=== PATIENT | female | born 1985 ===

== ENCOUNTER 2020-03-08 07:41 | Inpatient (IN) | payer BC ==
[2020-03-08] MEDS ORDERED: Sodium Chloride 0.9% 10 ML SDV IV PRN (17:22)
[2020-03-08] MEDS ORDERED: Methylergonovine 0.2 MG/1 ML Amp IM PRN (17:22)
[2020-03-08] MEDS ORDERED: Lidocaine 1% 50 ML MDV INJECT PRN (17:22)
[2020-03-08] MEDS ORDERED: Misoprostol 200 MCG Tab PO PRN (17:22)
[2020-03-08] MEDS ORDERED: Ondansetron 4 MG/2 ML SDV IVPUSH PRN (17:22)
[2020-03-08] MEDS ORDERED: Sodium Chloride 0.9% 2.5 ML Syringe FLUSH PRN (17:22)
[2020-03-08] MEDS ORDERED: Nalbuphine 10 MG/1 ML Vial IVPUSH PRN (17:22)
[2020-03-08] MEDS ORDERED: Tranexamic Acid 1,000 MG in Sodium Chloride 0.9% 100 ML IV PRN (17:22)
[2020-03-08] MEDS ORDERED: Water For Irrigation,Sterile 1,000 ML Container IRR PRN (17:22)
[2020-03-08] MEDS ORDERED: Terbutaline 1 MG/ML SDV SUBCUT PRN (17:22)
[2020-03-08] MEDS ORDERED: Carboprost Tromethamine 250 MCG/1 ML Amp IM PRN (17:22)
[2020-03-08] MEDS ORDERED: Butorphanol 1 MG/ML SDV IVPUSH PRN (17:22)
[2020-03-08] MEDS ORDERED: Sodium Chloride 0.9% 10 ML Syringe FLUSH PRN (17:22)
[2020-03-08] MEDS ORDERED: Oxytocin/0.9 % Sodium Chloride 30 UNIT/500 ML BAG IV SCH ×2 (17:30)
[2020-03-08] MEDS ORDERED: Misoprostol 25 MCG (1/4 of 100 MCG) Tab VAG PRN ×2 (18:00→22:00)
[2020-03-08] MEDS: Lactated Ringers 1,000 ML IV SCH ×2 (18:20→22:52)
[2020-03-08] MEDS ORDERED: VANCOMYCIN IV SCH (22:00)
[2020-03-08] MEDS ORDERED: SODIUM CHLORIDE 0.9% IV SCH (22:00)
[2020-03-08 22:32] LABS: CARBON DIOXIDE,CO2 20.1 mmol/L (21.0-32.0); POTASSIUM,K 3.6 mmol/L (3.5-5.1)
[2020-03-09] MEDS ORDERED: Vancomycin 1 GM SDV ONE (03:03)
[2020-03-09] MEDS ORDERED: Ropivacaine HCl/PF 100 ML ONE (06:01)
[2020-03-09] MEDS ORDERED: fentaNYL 100 MCG/2 ML SDV ONE (06:01)
--- NOTE | 2020-03-09 06:18 | PCM.PREANE ---
Preanesthetic Assessment - Anesthesia/Transfusion/Family Hx Anesthesia History: Prior Anesthesia Without Reaction Family History of Anesthesia Reaction: No Transfusion History: No Prior Transfusion(s) Type of Transfusion Reactions: Reports: Unknown - Physical Assessment NPO Status Date: 03/09/20 NPO Status Time: 02:00 Height: 1.7 m Weight: 128.82 kg ASA Class: 2 - Lab Values: Laboratory Last Values WBC 13.44 K/uL (4.0-11.0) H 03/08/20 17:52 RBC 3.68 M/uL (4.30-5.90) L 03/08/20 17:52 Hgb 10.8 g/dL (12.0-16.0) L 03/08/20 17:52 Hct 33.5 % (36.0-46.0) L 03/08/20 17:52 MCV 91.0 fL (80.0-98.0) 03/08/20 17:52 MCH 29.3 pg (27.0-32.0) 03/08/20 17:52 MCHC 32.2 g/dL (31.0-37.0) 03/08/20 17:52 RDW Std Deviation 44.7 fl (28.0-62.0) 03/08/20 17:52 RDW Coeff of Alida 14 % (11.0-15.0) 03/08/20 17:52 Plt Count 353 K/uL (150-400) 03/08/20 17:52 MPV 10.60 fL (7.40-12.00) 03/08/20 17:52 Nucleated RBC % 0.6 /100WBC 03/08/20 17:52 Nucleated RBCs # 0 K/uL 03/08/20 17:52 Sodium 142 mmol/L (136-145) 03/08/20 17:52 Potassium 3.6 mmol/L (3.5-5.1) 03/08/20 17:52 Chloride 107 mmol/L (98-107) 03/08/20 17:52 Carbon Dioxide 20.1 mmol/L (21.0-32.0) L 03/08/20 17:52 BUN 15 mg/dL (7.0-18.0) 03/08/20 17:52 Creatinine 1.1 mg/dL (0.6-1.0) H 03/08/20 17:52 Est Cr Clr Drug Dosing 69.42 mL/min 03/08/20 17:52 Estimated GFR (MDRD) 56.5 ml/min 03/08/20 17:52 Glucose 109 mg/dL (74-106) H 03/08/20 17:52 Uric Acid 5.7 mg/dL (2.6-7.2) 03/08/20 17:52 Calcium 9.0 mg/dL (8.5-10.1) 03/08/20 17:52 Total Bilirubin 0.2 mg/dL (0.2-1.0) 03/08/20 17:52 AST 19 IU/L (15-37) 03/08/20 17:52 ALT 19 IU/L (14-63) 03/08/20 17:52 Alkaline Phosphatase 121 U/L (46-116) H 03/08/20 17:52 Total Protein 6.0 g/dL (6.4-8.2) L 03/08/20 17:52 Albumin 2.3 g/dL (3.4-5.0) L 03/08/20 17:52 Globulin 3.7 g/dL (2.6-4.0) 03/08/20 17:52 Albumin/Globulin Ratio 0.6 (0.9-1.6) L 03/08/20 17:52 Blood Type AB NEGATIVE 03/08/20 17:52 Antibody Screen NEGATIVE 03/08/20 17:52 - Allergies Allergies/Adverse Reactions: Allergies Allergy/AdvReac Type Severity Reaction Status Date / Time Penicillins Allergy Severe Airway Verified 03/08/20 17:19 Tightness - Acknowledgements Anesthesia Type Planned: Epidural Pt an Appropriate Candidate for the Planned Anesthesia: Yes Alternatives and Risks of Anesthesia Discussed w Pt/Guardian: Yes Pt/Guardian Understands and Agrees with Anesthesia Plan: Yes PreAnesthesia Questionnaire HEENT History: Reports: None Cardiovascular History: Reports: None Respiratory History: Reports: None Gastrointestinal History: Reports: None Genitourinary History: Reports: None [employer] PLANNER History: Reports: Musculoskeletal History: Reports: None Neurological History: Reports: None Psychiatric History: Reports: None Endocrine/Metabolic History: Reports: None Hematologic History: Reports: None Immunologic History: Reports: None Oncologic (Cancer) History: Reports: None Dermatologic History: Reports: None - Infectious Disease History Infectious Disease History: Reports: Chicken Pox - Past Surgical History Head Surgeries/Procedures: Reports: None HEENT Surgical History: Reports: Oral Surgery, Other (See Below) Other HEENT Surgeries/Procedures: Avenel tooth extraction Cardiovascular Surgical History: Reports: None Respiratory Surgical History: Reports: None GI Surgical History: Reports: None Female Surgical History: Reports: None Endocrine Surgical History: Reports: None Neurological Surgical History: Reports: None Musculoskeletal Surgical History: Reports: None Oncologic Surgical History: Reports: None Dermatological Surgical History: Reports: None - SUBSTANCE USE Tobacco Use Status *Q: Never Tobacco User Recreational Drug Use History: No - HOME MEDS Home Medications: Home Meds Vits #93/Iron Fum/FA [ Formula Tablet] 1 each PO DAILY 03/08/20 [History] - CURRENT (IN HOUSE) MEDS Current Meds: Current Medications Butorphanol Tartrate (Stadol) 1 mg IVPUSH Q1H PRN PRN Reason: Pain Carboprost Tromethamine (Hemabate Ds) 250 mcg IM ASDIRECTED PRN PRN Reason: Post Hemorrhage Oxytocin/Sodium Chloride (Oxytocin 30 Unit/500 Ml-Ns) 30 unit in 500 mls @ 999 mls/hr IV TITRATE DIPIKA Tranexamic Acid 1,000 mg/ (Sodium Chloride) 110 mls @ 660 mls/hr IV ONETIME PRN PRN Reason: Bleeding Oxytocin/Sodium Chloride (Oxytocin 30 Unit/500 Ml-Ns) 30 unit in 500 mls @ 2 mls/hr IV TITRATE DIPIKA; Protocol Last Titration: 03/09/20 02:29 Dose: 8 munits/min, 8 mls/hr Documented by: Lactated Ringer's (Ringers, Lactated) 1,000 mls @ 150 mls/hr IV ASDIRECTED DIPIKA Last Admin: 03/08/20 22:52 Dose: 150 mls/hr Documented by: Vancomycin HCl 2 gm/ Sodium (Chloride) 250 mls @ 166 mls/hr IV Q8HR [facility] Last Admin: 03/09/20 00:03 Dose: Not Given Documented by: Lidocaine HCl (Xylocaine 1%) 50 ml INJECT ONETIME PRN PRN Reason: Laceration repair Methylergonovine Maleate (Methergine) 0.2 mg IM ASDIRECTED PRN PRN Reason: Post Hemorrhage Misoprostol (Cytotec) 200 mcg PO ONETIME PRN PRN Reason: Post Hemorrhage Misoprostol (Cytotec) 25 mcg VAG ONETIME PRN PRN Reason: Cervical Ripening Last Admin: 03/08/20 18:27 Dose: 25 mcg Documented by: Misoprostol (Cytotec) 25 mcg VAG Q4H PRN PRN Reason: Cervical Ripening Nalbuphine HCl (Nubain) 10 mg IVPUSH Q1H PRN PRN Reason: Pain (severe 7-10) Ondansetron HCl (Zofran) 4 mg IVPUSH Q6H PRN PRN Reason: Nausea/Vomiting Sodium Chloride (Saline Flush) 10 ml FLUSH ASDIRECTED PRN PRN Reason: Keep Vein Open Sodium Chloride (Saline Flush) 2.5 ml FLUSH ASDIRECTED PRN PRN Reason: Keep Vein Open Sodium Chloride (Normal Saline) 10 ml IV ASDIRECTED PRN PRN Reason: IV Use Sterile Water (Sterile Water For Irrigation) 1,000 ml IRR ASDIRECTED PRN PRN Reason: delivery Terbutaline Sulfate (Brethine) 0.25 mg SUBCUT ASDIRECTED PRN PRN Reason: Tacysystole Discontinued Medications Fentanyl (Sublimaze) Confirm Administered Dose 100 mcg .ROUTE .STSkyGrid-MED ONE Stop: 03/09/20 06:02 Vancomycin HCl 2.4494 gm/ (Sodium Chloride) 250 mls @ 166 mls/hr IV Q8HR DIPIKA Ropivacaine (Naropin 0.2%) Confirm Administered Dose 100 mls @ as directed .ROUTE .STK-MED ONE Stop: 03/09/20 06:02 Vancomycin HCl (Vancomycin) Confirm Administered Dose 1 gm .ROUTE .STK-MED ONE Stop: 03/09/20 03:04 Last Admin: 03/09/20 03:46 Dose: 2 gm Documented by:
--- NOTE | 2020-03-09 06:21 | PCM.PRNOTE ---
- Free Text/Narrative Note: Anes Note Patient requests epidural for L&D. Sitting position. Level L3-L4 midlien approach. Sterile technique. Chloraprep scrub to lumbar area. Sterile fenestrated drape applied. Epidural space easily achieved single attempt with ease using JOVANNI technique. JOVANNI at 3 cm. Cath threaded 5 cm with ease. Sterile clear adheisve dressing applied. Test 0610 3 cc 1.5% lido with epi negative. 0614 Load 10 cc 0.2% ropiviciane with 1 mcg cc fentnayl in slow divided doses. 0619 Pump started wih 90 cc same solution. Rate is 8 cc hr with 6 cc q 20 min prn bolus. Shalini well. Time with patient [id number] Christopher Glover [employer]
[2020-03-09] MEDS: Lactated Ringers 1,000 ML IV SCH (07:04)
[2020-03-09] MEDS ORDERED: Lidocaine 1% 50 ML MDV ONE (08:06)
[2020-03-09] MEDS ORDERED: Benzocaine/Menthol 20%-0.5% Spray 78 GM Cannister TOP PRN (08:39)
[2020-03-09] MEDS ORDERED: Lanolin 100% Cream 7 GM Tube TOP PRN (08:39)
[2020-03-09] MEDS ORDERED: Witch Hazel Medicated Pads 40/Jar TOP PRN (08:39)
[2020-03-09] MEDS ORDERED: Bisacodyl 10 MG Supp RECTAL PRN (08:39)
[2020-03-09] MEDS ORDERED: Measles, Mumps & Rubella Vaccine 0.5 ML SDV SUBCUT ONE (08:39)
[2020-03-09] MEDS ORDERED: oxyCODONE 5 MG Tab PO PRN (08:39)
[2020-03-09] MEDS ORDERED: Docusate Sodium 100 MG Cap PO PRN (08:39)
[2020-03-09] MEDS ORDERED: Acetaminophen 500 MG Tab PO PRN ×2 (08:39)
[2020-03-09] MEDS ORDERED: Ibuprofen 400 MG Tab PO PRN (08:39)
[2020-03-09] MEDS: Ibuprofen 800 MG Tab PO PRN ×2 (09:58→21:08)
[2020-03-09] MEDS: NIFEdipine 30 MG Tab.ER PO SCH (15:20)
--- NOTE | 2020-03-09 21:07 | PCM.SN.2 ---
- Free Text/Narrative Note: Patient is feeling well overall. Denies headache or visual changes. Blood pressures have been in 140-150s/80-90s. Procardia 30 mg XL daily initiated orally. Will continue cares and monitor blood pressures closely.
[2020-03-10 05:36] LABS: BLOOD UREA NITROGEN,BUN 10 mg/dL (7.0-18.0); CARBON DIOXIDE,CO2 23.4 mmol/L (21.0-32.0); CHLORIDE,CL 108 mmol/L (98-107); GLUCOSE RANDOM 84 mg/dL (74-106); POTASSIUM,K 3.9 mmol/L (3.5-5.1); SODIUM,NA 142 mmol/L (136-145)
--- NOTE | 2020-03-10 07:23 | PCM48HPAN ---
Post Anesthesia Note - EVALUATION WITHIN 48HRS OF ANESTHETIC Vital Signs in Normal Range: Yes Patient Participated in Evaluation: Yes Respiratory Function Stable: Yes Airway Patent: Yes Cardiovascular Function Stable: Yes Hydration Status Stable: Yes Pain Control Satisfactory: Yes Nausea and Vomiting Control Satisfactory: Yes Mental Status Recovered: Yes Vital Signs: Last Vital Signs Temp 36.5 C 03/10/20 04:14 Pulse 66 03/10/20 04:14 Resp 16 03/10/20 04:14 BP 135/81 03/10/20 04:14 Pulse Ox 97 03/10/20 04:14 - COMMENTS/OBSERVATIONS Free Text/Narrative:: Doing well.
--- NOTE | 2020-03-10 07:35 | OR ---
SURGEON: Javier Brown MD DATE OF PROCEDURE: 03/09/2020 INDICATION FOR PROCEDURE: This is a 34-year-old G2, P 1-0-0-1 at 37 weeks and 1 day, admitted for induction of labor due to preeclampsia without severe features. The patient was noted to have elevated blood pressures earlier this week that was 150s over 90s. She denied any symptoms of severe preeclampsia. She completed a course of betamethasone, and scheduled for induction of labor at 37 weeks. She is GBS positive with penicillin allergy of anaphylaxis. Sensitivities showed resistance to clindamycin. Therefore she was given vancomycin for GBS prophylaxis. She is AMA, had otherwise uncomplicated . Her BP was mild range on admission, did not have symptoms. Her preeclampsia labs were noted to have elevated creatinine of 1.1, otherwise was within normal limits. She previously had elevated protein to creatinine ratio of 0.3. She was given 2 doses of Cytotec and began shama every 1 to 2 minutes, but did not make cervical change from 1 cm. She was given Pitocin and began making cervical change. She became 4 cm dilated, then had spontaneous rupture of membranes with clear fluid. She desired an epidural which she received with good pain control. The baby had mostly category 1 tracing. She did have intermittent variable decels that responded to repositioning. She then progressed quickly to fully dilated and +1 station with the urge to push. PREOPERATIVE DIAGNOSES: 1. Espinoza intrauterine at 37 weeks and 0 days. 2. Preeclampsia without severe features. 3. Advanced maternal age. POSTOPERATIVE DIAGNOSES: 1. Espinoza intrauterine at 37 weeks and 0 days. 2. Preeclampsia without severe features. 3. Advanced maternal age. PROCEDURE PERFORMED: Normal spontaneous vaginal delivery, repair of second-degree perineal laceration and right labial laceration. ANESTHESIA: Epidural. FINDINGS: Viable male infant, scores of 8 and 9, weight of 3400 g. DESCRIPTION OF PROCEDURE: The patient pushed with contractions for approximately 45 minutes with good descent to +4 station. The head delivered in occiput anterior position, restituted to ROT. Anterior shoulder delivered easily, followed by posterior shoulder and remaining body. No nuchal cord was noted. The baby was placed on maternal chest and evaluated by awaiting nursery staff. The baby was pink, crying vigorously, and moving all extremities immediately after delivery. The umbilical cord gases were obtained. The placenta was removed with gentle traction on the umbilical cord and fundal massage. It was examined to be intact with 3-vessel cord. The perineum was examined, and she had a second-degree laceration, which extended along the inferior right labia. She did not have complete pain relief. Therefore, she was given 15 mL of 1% lidocaine with epi for local anesthesia. The second-degree laceration was repaired with 2-0 Vicryl in the usual fashion. The right labial laceration was then repaired with 3-0 Vicryl in a running fashion. Hemostasis was confirmed after the repair. Fundal massage was performed, the uterus was firm and below the umbilicus, and the bleeding was light. She tolerated the procedure well and was given care instructions. RAUL HARRIS /[id number] MTDD
--- NOTE | 2020-03-10 08:17 | PCM.PNPP ---
- General Info Date of Service: 03/10/20 Functional Status: Reports: Pain Controlled, Tolerating Diet, Ambulating, Urinating - Review of Systems General: Reports: Fatigue. Denies: Fever, Weakness Pulmonary: Denies: Shortness of Breath Cardiovascular: Denies: Chest Pain, Palpitations, Lightheadedness Gastrointestinal: Denies: Abdominal Pain, Nausea, Vomiting Genitourinary: Reports: No Symptoms Musculoskeletal: Reports: No Symptoms Skin: Reports: No Symptoms Neurological: Reports: No Symptoms. Denies: Headache Psychiatric: Reports: No Symptoms - General Info Date of Service: 03/10/20 - Patient Data Vital Signs - Most Recent: Last Vital Signs Temp 36.4 C 03/10/20 08:03 Pulse 69 03/10/20 08:03 Resp 18 03/10/20 08:03 BP 149/93 H 03/10/20 08:03 Pulse Ox 99 03/10/20 08:03 Weight - Most Recent: 128.82 kg Lab Results - Last 24 Hours: Laboratory Results - last 24 hr 03/09/20 03/10/20 03/10/20 Range/Units 09:27 04:55 04:55 WBC 14.17 H (4.0-11.0) K/uL RBC 3.24 L (4.30-5.90) M/uL Hgb 9.3 L (12.0-16.0) g/dL Hct 29.4 L (36.0-46.0) % MCV 90.7 (80.0-98.0) fL MCH 28.7 (27.0-32.0) pg MCHC 31.6 (31.0-37.0) g/dL RDW Std Deviation 44.4 (28.0-62.0) fl RDW Coeff of Alida 14 (11.0-15.0) % Plt Count 312 (150-400) K/uL MPV 10.20 (7.40-12.00) fL Neut % (Auto) 65.7 (48.0-80.0) % Lymph % (Auto) 26.3 (16.0-40.0) % Giles % (Auto) 7.2 (0.0-15.0) % Eos % (Auto) 0.6 (0.0-7.0) % Baso % (Auto) 0.2 (0.0-1.5) % Neut # (Auto) 9.3 H (1.4-5.7) K/uL Lymph # (Auto) 3.7 H (0.6-2.4) K/uL Giles # (Auto) 1.0 H (0.0-0.8) K/uL Eos # (Auto) 0.1 (0.0-0.7) K/uL Baso # (Auto) 0.0 (0.0-0.1) K/uL Nucleated RBC % 0.0 /100WBC Nucleated RBCs # 0 K/uL Sodium 142 (136-145) mmol/L Potassium 3.9 (3.5-5.1) mmol/L Chloride 108 H (98-107) mmol/L Carbon Dioxide 23.4 (21.0-32.0) mmol/L BUN 10 (7.0-18.0) mg/dL Creatinine 0.9 (0.6-1.0) mg/dL Est Cr Clr Drug Dosing 84.84 mL/min Estimated GFR (MDRD) > 60.0 ml/min Glucose 84 (74-106) mg/dL Uric Acid (2.6-7.2) mg/dL Calcium 8.7 (8.5-10.1) mg/dL Total Bilirubin 0.2 (0.2-1.0) mg/dL AST 19 (15-37) IU/L ALT 15 (14-63) IU/L Alkaline Phosphatase 103 (46-116) U/L Total Protein 5.5 L (6.4-8.2) g/dL Albumin 1.8 L (3.4-5.0) g/dL Globulin 3.7 (2.6-4.0) g/dL Albumin/Globulin Ratio 0.5 L (0.9-1.6) Screen NEGATIVE (NEGATIVE) RhIG Candidate? YES Rhogam Indicated YES, BABY RH POS H 03/10/20 Range/Units 04:55 WBC (4.0-11.0) K/uL RBC (4.30-5.90) M/uL Hgb (12.0-16.0) g/dL Hct (36.0-46.0) % MCV (80.0-98.0) fL MCH (27.0-32.0) pg MCHC (31.0-37.0) g/dL RDW Std Deviation (28.0-62.0) fl RDW Coeff of Alida (11.0-15.0) % Plt Count (150-400) K/uL MPV (7.40-12.00) fL Neut % (Auto) (48.0-80.0) % Lymph % (Auto) (16.0-40.0) % Giles % (Auto) (0.0-15.0) % Eos % (Auto) (0.0-7.0) % Baso % (Auto) (0.0-1.5) % Neut # (Auto) (1.4-5.7) K/uL Lymph # (Auto) (0.6-2.4) K/uL Giles # (Auto) (0.0-0.8) K/uL Eos # (Auto) (0.0-0.7) K/uL Baso # (Auto) (0.0-0.1) K/uL Nucleated RBC % /100WBC Nucleated RBCs # K/uL Sodium (136-145) mmol/L Potassium (3.5-5.1) mmol/L Chloride (98-107) mmol/L Carbon Dioxide (21.0-32.0) mmol/L BUN (7.0-18.0) mg/dL Creatinine (0.6-1.0) mg/dL Est Cr Clr Drug Dosing mL/min Estimated GFR (MDRD) ml/min Glucose (74-106) mg/dL Uric Acid 5.2 (2.6-7.2) mg/dL Calcium (8.5-10.1) mg/dL Total Bilirubin (0.2-1.0) mg/dL AST (15-37) IU/L ALT (14-63) IU/L Alkaline Phosphatase (46-116) U/L Total Protein (6.4-8.2) g/dL Albumin (3.4-5.0) g/dL Globulin (2.6-4.0) g/dL Albumin/Globulin Ratio (0.9-1.6) Screen (NEGATIVE) RhIG Candidate? Rhogam Indicated Med Orders - Current: Current Medications Acetaminophen (Tylenol Extra Strength) 500 mg PO Q4H PRN PRN Reason: Pain Acetaminophen (Tylenol Extra Strength) 1,000 mg PO Q4H PRN PRN Reason: Pain Benzocaine/Menthol (Dermoplast Pain Relief 20%-0.5% Faxon) 78 gm TOP ASDIRECTED PRN PRN Reason: Perineal Comfort Measure Last Admin: 03/09/20 09:59 Dose: 1 canister Documented by: Bisacodyl (Dulcolax) 10 mg RECTAL ONETIME PRN PRN Reason: Constipation Butorphanol Tartrate (Stadol) 1 mg IVPUSH Q1H PRN PRN Reason: Pain Carboprost Tromethamine (Hemabate Ds) 250 mcg IM ASDIRECTED PRN PRN Reason: Post Hemorrhage Docusate Sodium (Colace) 100 mg PO BID PRN PRN Reason: Constipation Last Admin: 03/09/20 09:58 Dose: 100 mg Documented by: Emollient Ointment (Lansinoh Hpa) 0 gm TOP ASDIRECTED PRN PRN Reason: Sore Nipples Oxytocin/Sodium Chloride (Oxytocin 30 Unit/500 Ml-Ns) 30 unit in 500 mls @ 999 mls/hr IV TITRATE DIPIKA Tranexamic Acid 1,000 mg/ (Sodium Chloride) 110 mls @ 660 mls/hr IV ONETIME PRN PRN Reason: Bleeding Oxytocin/Sodium Chloride (Oxytocin 30 Unit/500 Ml-Ns) 30 unit in 500 mls @ 2 mls/hr IV TITRATE DIPIKA; Protocol Last Titration: 03/09/20 07:45 Dose: 999 munits/min, 999 mls/hr Documented by: Lactated Ringer's (Ringers, Lactated) 1,000 mls @ 150 mls/hr IV ASDIRECTED DIPIKA Last Admin: 03/09/20 07:04 Dose: 150 mls/hr Documented by: Ibuprofen (Motrin) 400 mg PO Q4H PRN PRN Reason: Pain Ibuprofen (Motrin) 800 mg PO Q6H PRN PRN Reason: Pain Last Admin: 03/09/20 21:08 Dose: 800 mg Documented by: Lidocaine HCl (Xylocaine 1%) 50 ml INJECT ONETIME PRN PRN Reason: Laceration repair Methylergonovine Maleate (Methergine) 0.2 mg IM ASDIRECTED PRN PRN Reason: Post Hemorrhage Misoprostol (Cytotec) 200 mcg PO ONETIME PRN PRN Reason: Post Hemorrhage Misoprostol (Cytotec) 25 mcg VAG ONETIME PRN PRN Reason: Cervical Ripening Last Admin: 03/08/20 18:27 Dose: 25 mcg Documented by: Misoprostol (Cytotec) 25 mcg VAG Q4H PRN PRN Reason: Cervical Ripening Nalbuphine HCl (Nubain) 10 mg IVPUSH Q1H PRN PRN Reason: Pain (severe 7-10) Nifedipine (Procardia Xl) 30 mg PO DAILY [facility] Last Admin: 03/09/20 15:20 Dose: 30 mg Documented by: Ondansetron HCl (Zofran) 4 mg IVPUSH Q6H PRN PRN Reason: Nausea/Vomiting Oxycodone HCl (Oxycodone) 5 mg PO Q2H PRN PRN Reason: Pain Sodium Chloride (Saline Flush) 10 ml FLUSH ASDIRECTED PRN PRN Reason: Keep Vein Open Sodium Chloride (Saline Flush) 2.5 ml FLUSH ASDIRECTED PRN PRN Reason: Keep Vein Open Sodium Chloride (Normal Saline) 10 ml IV ASDIRECTED PRN PRN Reason: IV Use Sterile Water (Sterile Water For Irrigation) 1,000 ml IRR ASDIRECTED PRN PRN Reason: delivery Terbutaline Sulfate (Brethine) 0.25 mg SUBCUT ASDIRECTED PRN PRN Reason: Tacysystole Witch Essie (Tucks) 1 pad TOP ASDIRECTED PRN PRN Reason: comfort care Last Admin: 03/09/20 09:59 Dose: 1 tub Documented by: Discontinued Medications Fentanyl (Sublimaze) Confirm Administered Dose 100 mcg .ROUTE .STK-MED ONE Stop: 03/09/20 06:02 Last Admin: 03/09/20 15:30 Dose: Not Given Documented by: Vancomycin HCl 2.4494 gm/ (Sodium Chloride) 250 mls @ 166 mls/hr IV Q8HR [facility] Vancomycin HCl 2 gm/ Sodium (Chloride) 250 mls @ 166 mls/hr IV Q8HR [facility] Last Admin: 03/09/20 15:31 Dose: Not Given Documented by: Ropivacaine (Naropin 0.2%) Confirm Administered Dose 100 mls @ as directed .ROUTE .STK-MED ONE Stop: 03/09/20 06:02 Last Admin: 03/09/20 15:30 Dose: Not Given Documented by: Lidocaine HCl (Xylocaine 1%) Confirm Administered Dose 50 ml .ROUTE .STK-MED ONE Stop: 03/09/20 08:07 Last Admin: 03/09/20 15:30 Dose: Not Given Documented by: Measles/Mumps/Rubella Vaccine Live (M-M-R Ii Vaccine) 0.5 ml SUBCUT .ONCE ONE Stop: 03/09/20 08:40 Vancomycin HCl (Vancomycin) Confirm Administered Dose 1 gm .ROUTE .STK-MED ONE Stop: 03/09/20 03:04 Last Admin: 03/09/20 03:46 Dose: 2 gm Documented by: - Interaction Support Person: - Recovery Exam Fundal Tone: Firm Fundal Level: 2 Fingerbreadths Below Umbilicus Fundal Placement: Midline Lochia Amount: Scant Lochia Color: Rubra/Red Perineum Description: Other (see below) Other Perinuem Description: 2nd degree laceration with repair. Episiotomy/Laceration: Approximated Bladder Status: Voiding - Exam General: Alert, Oriented Lungs: Normal Respiratory Effort Cardiovascular: Regular Rate, Regular Rhythm GI/Abdominal Exam: Normal Bowel Sounds, Soft Extremities: Pedal Edema (1+). No: Katy's Sign Skin: Warm, Dry, Intact Neurological: No New Focal Deficit Psy/Mental Status: Alert, Normal Affect, Normal Mood - Problem List & Annotations (1) Vaginal delivery SNOMED Code(s): 200237085 Code(s): O80 - ENCOUNTER FOR FULL-TERM UNCOMPLICATED DELIVERY Status: Acute Current Visit: Yes (2) Gestational hypertension SNOMED Code(s): 191522860 Code(s): O13.9 - GESTATIONAL HTN W/O SIGNIFICANT PROTEINURIA, UNSP TRIMESTER Status: Acute Current Visit: Yes - Problem List Review Problem List Initiated/Reviewed/Updated: Yes - My Orders Last 24 Hours: My Active Orders 03/09/20 15:15 NIFEdipine [Procardia XL] 30 mg PO DAILY - Assessment Assessment:: PPD 1 status post Gestational hypertension - Plan Plan:: Labs are reassuring. Patient has no headaches or visual changes. BP imrpoved this morning. Continue procardia 30 mg XL daily and monitor. Continue PP cares.
[2020-03-10] MEDS: NIFEdipine 30 MG Tab.ER PO SCH (09:09)
--- NOTE | 2020-03-11 08:46 | PCM.PNPP ---
- General Info Date of Service: 03/11/20 Functional Status: Reports: Pain Controlled, Tolerating Diet, Ambulating, Urinating - Review of Systems General: Denies: Fever, Weakness, Fatigue Pulmonary: Denies: Shortness of Breath Cardiovascular: Denies: Chest Pain, Palpitations, Lightheadedness Gastrointestinal: Denies: Abdominal Pain, Nausea, Vomiting Genitourinary: Reports: No Symptoms Musculoskeletal: Reports: No Symptoms Skin: Reports: No Symptoms Neurological: Reports: No Symptoms Psychiatric: Reports: No Symptoms - General Info Date of Service: 03/11/20 - Patient Data Vital Signs - Most Recent: Last Vital Signs Temp 36.1 C 03/11/20 04:20 Pulse 69 03/11/20 04:20 Resp 16 03/11/20 04:20 BP 144/88 H 03/11/20 04:20 Pulse Ox 99 03/10/20 20:37 Weight - Most Recent: 128.82 kg Lab Results - Last 24 Hours: Laboratory Results - last 24 hr 03/09/20 Range/Units 09:27 Screen NEGATIVE (NEGATIVE) RhIG Candidate? YES Rhogam Indicated YES, BABY RH POS H Med Orders - Current: Current Medications Acetaminophen (Tylenol Extra Strength) 500 mg PO Q4H PRN PRN Reason: Pain Acetaminophen (Tylenol Extra Strength) 1,000 mg PO Q4H PRN PRN Reason: Pain Benzocaine/Menthol (Dermoplast Pain Relief 20%-0.5% [place]) 78 gm TOP ASDIRECTED PRN PRN Reason: Perineal Comfort Measure Last Admin: 03/09/20 09:59 Dose: 1 canister Documented by: Bisacodyl (Dulcolax) 10 mg RECTAL ONETIME PRN PRN Reason: Constipation Butorphanol Tartrate (Stadol) 1 mg IVPUSH Q1H PRN PRN Reason: Pain Carboprost Tromethamine (Hemabate Ds) 250 mcg IM ASDIRECTED PRN PRN Reason: Post Hemorrhage Docusate Sodium (Colace) 100 mg PO BID PRN PRN Reason: Constipation Last Admin: 03/09/20 09:58 Dose: 100 mg Documented by: Emollient Ointment (Lansinoh Hpa) 0 gm TOP ASDIRECTED PRN PRN Reason: Sore Nipples Oxytocin/Sodium Chloride (Oxytocin 30 Unit/500 Ml-Ns) 30 unit in 500 mls @ 999 mls/hr IV TITRATE DIPIKA Tranexamic Acid 1,000 mg/ (Sodium Chloride) 110 mls @ 660 mls/hr IV ONETIME PRN PRN Reason: Bleeding Oxytocin/Sodium Chloride (Oxytocin 30 Unit/500 Ml-Ns) 30 unit in 500 mls @ 2 mls/hr IV TITRATE [facility]; Protocol Last Titration: 03/09/20 07:45 Dose: 999 munits/min, 999 mls/hr Documented by: Lactated Ringer's (Ringers, Lactated) 1,000 mls @ 150 mls/hr IV ASDIRECTED DIPIKA Last Admin: 03/09/20 07:04 Dose: 150 mls/hr Documented by: Ibuprofen (Motrin) 400 mg PO Q4H PRN PRN Reason: Pain Ibuprofen (Motrin) 800 mg PO Q6H PRN PRN Reason: Pain Last Admin: 03/09/20 21:08 Dose: 800 mg Documented by: Lidocaine HCl (Xylocaine 1%) 50 ml INJECT ONETIME PRN PRN Reason: Laceration repair Methylergonovine Maleate (Methergine) 0.2 mg IM ASDIRECTED PRN PRN Reason: Post Hemorrhage Misoprostol (Cytotec) 200 mcg PO ONETIME PRN PRN Reason: Post Hemorrhage Misoprostol (Cytotec) 25 mcg VAG ONETIME PRN PRN Reason: Cervical Ripening Last Admin: 03/08/20 18:27 Dose: 25 mcg Documented by: Misoprostol (Cytotec) 25 mcg VAG Q4H PRN PRN Reason: Cervical Ripening Nalbuphine HCl (Nubain) 10 mg IVPUSH Q1H PRN PRN Reason: Pain (severe 7-10) Nifedipine (Procardia Xl) 30 mg PO DAILY [facility] Last Admin: 03/10/20 09:09 Dose: 30 mg Documented by: Ondansetron HCl (Zofran) 4 mg IVPUSH Q6H PRN PRN Reason: Nausea/Vomiting Oxycodone HCl (Oxycodone) 5 mg PO Q2H PRN PRN Reason: Pain Sodium Chloride (Saline Flush) 10 ml FLUSH ASDIRECTED PRN PRN Reason: Keep Vein Open Sodium Chloride (Saline Flush) 2.5 ml FLUSH ASDIRECTED PRN PRN Reason: Keep Vein Open Sodium Chloride (Normal Saline) 10 ml IV ASDIRECTED PRN PRN Reason: IV Use Sterile Water (Sterile Water For Irrigation) 1,000 ml IRR ASDIRECTED PRN PRN Reason: delivery Terbutaline Sulfate (Brethine) 0.25 mg SUBCUT ASDIRECTED PRN PRN Reason: Tacysystole Susie Fountain (Tucks) 1 pad TOP ASDIRECTED PRN PRN Reason: comfort care Last Admin: 03/09/20 09:59 Dose: 1 tub Documented by: Discontinued Medications Fentanyl (Sublimaze) Confirm Administered Dose 100 mcg .ROUTE .STK-MED ONE Stop: 03/09/20 06:02 Last Admin: 03/09/20 15:30 Dose: Not Given Documented by: Vancomycin HCl 2.4494 gm/ (Sodium Chloride) 250 mls @ 166 mls/hr IV Q8HR DIPIKA Vancomycin HCl 2 gm/ Sodium (Chloride) 250 mls @ 166 mls/hr IV Q8HR DIPIKA Last Admin: 03/09/20 15:31 Dose: Not Given Documented by: Ropivacaine (Naropin 0.2%) Confirm Administered Dose 100 mls @ as directed .ROUTE .STK-MED ONE Stop: 03/09/20 06:02 Last Admin: 03/09/20 15:30 Dose: Not Given Documented by: Lidocaine HCl (Xylocaine 1%) Confirm Administered Dose 50 ml .ROUTE .STK-MED ONE Stop: 03/09/20 08:07 Last Admin: 03/09/20 15:30 Dose: Not Given Documented by: Measles/Mumps/Rubella Vaccine Live (M-M-R Ii Vaccine) 0.5 ml SUBCUT .ONCE ONE Stop: 03/09/20 08:40 Vancomycin HCl (Vancomycin) Confirm Administered Dose 1 gm .ROUTE .STK-MED ONE Stop: 03/09/20 03:04 Last Admin: 03/09/20 03:46 Dose: 2 gm Documented by: - Infant Interaction Support Person: - Recovery Exam Fundal Tone: Firm Fundal Level: 2 Fingerbreadths Below Umbilicus Fundal Placement: Midline Lochia Amount: Scant Lochia Color: Rubra/Red Perineum Description: Other (see below) Other Perinuem Description: 2nd degree laceration with repair. Episiotomy/Laceration: Approximated Bladder Status: Voiding - Exam General: Alert, Oriented Lungs: Normal Respiratory Effort Cardiovascular: Regular Rate, Regular Rhythm GI/Abdominal Exam: Normal Bowel Sounds, Soft Extremities: Pedal Edema (tracer). No: Katy's Sign Skin: Warm, Dry, Intact Wound/Incisions: Healing Well, No Drainage. No: Erythema Neurological: No New Focal Deficit Psy/Mental Status: Alert, Normal Affect, Normal Mood - Problem List & Annotations (1) Vaginal delivery SNOMED Code(s): 577387142 Code(s): O80 - ENCOUNTER FOR FULL-TERM UNCOMPLICATED DELIVERY Status: Acute Current Visit: Yes (2) Gestational hypertension SNOMED Code(s): 358548975 Code(s): O13.9 - GESTATIONAL HTN W/O SIGNIFICANT PROTEINURIA, UNSP TRIMESTER Status: Acute Current Visit: Yes - Problem List Review Problem List Initiated/Reviewed/Updated: Yes - My Orders Last 24 Hours: My Active Orders 03/11/20 08:41 Ready for Discharge [RC] PER UNIT ROUTINE - Assessment Assessment:: PPD 2 status post Gestational hypertension - Plan Plan:: Patient is doing well overall. Denies headache or visual changes. She would like to go home today. Agrees to monitor BP at home. Increase procardia to 60 mg daily. Discharge instructions reviewed. Follow up at [facility] 1 week for BP check and 4 week PP. Discharge to home.
[2020-03-11] MEDS: NIFEdipine 30 MG Tab.ER PO SCH (09:58)
== END 2020-03-11 12:20 | disposition home or self-care (01) | DRG 560 ==
LOC: MW.OB 07:41 → OBSVTOIN 03-09 07:41 → MW.OB 03-09 11:30
PROVIDERS: ADMIT Obstetrics & Gynecology; ATTEND Obstetrics & Gynecology
PROC: 10E0XZZ Delivery of Products of Conception, External Approach (ICD-10-PCS; principal; 2020-03-09)
PROC: 3E0P7VZ Introduction of Hormone into Female Reproductive, Via Natural or Artificial Opening (ICD-10-PCS; 2020-03-09)
PROC: 3E033VJ Introduction of Other Hormone into Peripheral Vein, Percutaneous Approach (ICD-10-PCS; 2020-03-09)
PROC: 3E0R3BZ Introduction of Anesthetic Agent into Spinal Canal, Percutaneous Approach (ICD-10-PCS; 2020-03-09)
DX: O14.04 Mild to moderate pre-eclampsia, complicating childbirth (principal); Z3A.37 37 weeks gestation of pregnancy; Z37.0 Single live birth; O76 Abnormality in fetal heart rate and rhythm complicating labor and delivery; O99.824 Streptococcus B carrier state complicating childbirth
CPT/HCPCS: 01967; 36415; 36430; 51702; 59025; 59409; 80053; 84550; 85025; 85027; 85460; 86592; 86850; 86900; 86901; A9270-GY; J2001; J2590; J2792; J2795; J3010; J3370; J7050; J7120